=== PATIENT | male | born 1970 | race African-American/Black ===

== ENCOUNTER 2016-05-28 15:18 | Inpatient (IN) | payer OTHER ==
[2016-05-28 15:22] VITALS: BMI 26.6
--- NOTE | 2016-05-28 18:11 | HP ---
CIWA Score - CIWA Score Nausea/Vomitin Muscle Tremors: 3 Anxiety: 3 Agitation: 3 Paroxysmal Sweats: 2 Orientation: 0-Oriented Tacttile Disturbances: 2-Mild Itch/Numbness/Burn Auditory Disturbances: 2-Mild Harshness/Frighten Visual Disturbances: 2-Mild Sensitivity Headache: 2-Mild CIWA-Ar Total Score: 22 Admission ROS S - HPI Chief Complaint: I NEED DETOX FROM ALCOHOL,COCAINE AND HEROIN Allergies/Adverse Reactions: Allergies Allergy/AdvReac Type Severity Reaction Status Date / Time Fish Containing Products Allergy Severe Swelling Verified 06/20/15 21:19 No Known Drug Allergies Allergy Verified 06/23/15 18:31 SEA FOOD Allergy Severe Swelling Uncoded 06/20/15 21:19 History of Present Illness: THIS 45 - Ebola screening Have you traveled outside of the country in the last 21 days: No Have you had contact with anyone from an Ebola affected area: No Have you been sick,other than usual withdrawal symptoms: No Do you have a fever: No Patient History - Patient Medical History Hx Anemia: No Hx Asthma: No Hx Chronic Obstructive Pulmonary Disease (COPD): No Hx Cancer: No Hx Cardiac Disorders: No Hx Congestive Heart Failure: No Hx Hypertension: No Hx Hypercholesterolemia: No Hx Pacemaker: No HX Cerebrovascular Accident: No Hx Seizures: No Hx Dementia: No Hx Diabetes: No Hx Gastrointestinal Disorders: No Hx Liver Disease: No Hx Genitourinary Disorders: No Hx Sexually Transmitted Disorders: No Hx Renal Disease (ESRD): No Hx Thyroid Disease: No Hx Human Immunodeficiency Virus (HIV): No Hx Hepatitis C: No Hx Depression: Yes Hx Suicide Attempt: No Hx Bipolar Disorder: No Hx Schizophrenia: Yes - Patient Surgical History Past Surgical History: Yes Hx Neurologic Surgery: No Hx Cataract Extraction: No Hx Cardiac Surgery: No Hx Lung Surgery: No Hx Breast Surgery: No Hx Breast Biopsy: No Hx Abdominal Surgery: No Hx Appendectomy: No Hx Cholecystectomy: No Hx Genitourinary Surgery: No Hx Orthopedic Surgery: No Other Surgical History: hammar great toes 2012, both hands 6th digit removed as "baby" Anesthesia Reaction: No - PPD History Date: 06/22/15 - Smoking Cessation Smoking history: Current every day smoker Have you smoked in the past 12 months: Yes Aproximately how many cigarettes per day: 20 Hx Chewing Tobacco Use: No Family Disease History - Family Disease History Family Disease History: Heart Disease: Father, Mother Admission Physical Exam S - Vital Signs Vital Signs: Vital Signs - 24 hr 05/28/16 15:20 Temperature 97.6 F Pulse Rate 81 Respiratory 18 Rate Blood Pressure 122/98 BHS Breath Alcohol Content Breath Alcohol Content: 0 Urine Drug Screen - Results Drug Screen Negative: Yes
--- NOTE | 2016-05-28 18:16 | HP ---
CIWA Score - CIWA Score Nausea/Vomitin Muscle Tremors: 3 Anxiety: 3 Agitation: 3 Paroxysmal Sweats: 2 Orientation: 0-Oriented Tacttile Disturbances: 2-Mild Itch/Numbness/Burn Auditory Disturbances: 2-Mild Harshness/Frighten Visual Disturbances: 2-Mild Sensitivity Headache: 2-Mild CIWA-Ar Total Score: 22 Admission ROS BHS - HPI Chief Complaint: I NEED HELP TO STOP DRINKING ALCOHOL,COCAINE AND HEROIN Allergies/Adverse Reactions: Allergies Allergy/AdvReac Type Severity Reaction Status Date / Time Fish Containing Products Allergy Severe Swelling Verified 05/28/16 19:33 No Known Drug Allergies Allergy Verified 05/28/16 19:33 SEA FOOD Allergy Severe Swelling Uncoded 05/28/16 19:33 HAM Allergy Uncoded 05/28/16 19:33 History of Present Illness: THIS 45 YEARS OLD MALE WITH ALCOHOL,COCAINE,HEROIN DEPENDENCE,WITHDRAWAL SYMPTOM ,LAST DETOX [facility] 07/21/15 TO 06/25/15 SYNCOPE NICOTINE DEPENDENCE INSOMNIA LONGEST SOBRIETY 6 MONTHS Exam Limitations: No Limitations - Ebola screening Have you traveled outside of the country in the last 21 days: No Have you had contact with anyone from an Ebola affected area: No Have you been sick,other than usual withdrawal symptoms: No Do you have a fever: No - Review of Systems Constitutional: Loss of Appetite, Malaise, Night Sweats, Changes in sleep, Weakness, Unintentional Wgt. Loss EENT: reports: Tearing, Nose Congestion Respiratory: reports: No Symptoms reported Cardiac: reports: No Symptoms Reported GI: reports: Diarrhea, Nausea, Vomiting, Abdominal cramping : reports: No Symptoms Reported Musculoskeletal: reports: Back Pain, Muscle Pain Integumentary: reports: Dryness Neuro: reports: Headache, Tremors Endocrine: reports: No Symptoms Reported Hematology: reports: No Symptoms Reported Psychiatric: reports: Judgement Intact, Mood/Affect Appropiate, Orientated x3, other (BIPOLAR DISORDER) Patient History - Patient Medical History Hx Anemia: No Hx Asthma: No Hx Chronic Obstructive Pulmonary Disease (COPD): No Hx Cancer: No Hx Cardiac Disorders: No Hx Congestive Heart Failure: No Hx Hypertension: No Hx Hypercholesterolemia: No Hx Pacemaker: No HX Cerebrovascular Accident: No Hx Seizures: No Hx Dementia: No Hx Diabetes: No Hx Gastrointestinal Disorders: No Hx Liver Disease: No Hx Genitourinary Disorders: No Hx Sexually Transmitted Disorders: No Hx Renal Disease (ESRD): No Hx Thyroid Disease: No Hx Human Immunodeficiency Virus (HIV): No (LAST 2016 NEGATIVE) Hx Hepatitis C: No Hx Depression: Yes Hx Suicide Attempt: No Hx Bipolar Disorder: Yes Hx Schizophrenia: No Other Medical History: NO SUICIDAL,NO HOMICIDAL - Patient Surgical History Past Surgical History: Yes Hx Neurologic Surgery: No Hx Cataract Extraction: No Hx Cardiac Surgery: No Hx Lung Surgery: No Hx Breast Surgery: No Hx Breast Biopsy: No Hx Abdominal Surgery: No Hx Appendectomy: No Hx Cholecystectomy: No Hx Genitourinary Surgery: No Hx Orthopedic Surgery: No Other Surgical History: hammar great toes 2011, both hands 6th digit removed as "baby" Anesthesia Reaction: No - PPD History Previous Implant?: Yes Implanted On Prior [facility] Admission?: Yes Date: 06/22/15 Results: 0 MM PPD to be Administered?: No - Smoking Cessation Smoking history: Current every day smoker Have you smoked in the past 12 months: Yes Aproximately how many cigarettes per day: 20 Hx Chewing Tobacco Use: No Initiated information on smoking cessation: Yes 'Breaking Loose' booklet given: 05/28/16 - Substance & Tx. History Hx Alcohol Use: Yes Hx Substance Use: Yes Substance Use Type: Alcohol, Cocaine, Heroin Hx Substance Use Treatment: Yes ([facility] 06/20/15 TO 06/25/15) - Substances Abused Alcohol Route: Oral Frequency: Daily Amount used: 2PINTS OF MARQUEZ/5 OF 24 OZS Age of first use: 20 Date of Last Use: 05/27/16 Cocaine Route: Inhalation Frequency: Daily Amount used: 50$ Age of first use: 31 Date of Last Use: 05/27/16 Heroin Route: Inhalation Frequency: Daily Amount used: 5 BAGS Age of first use: 43 Date of Last Use: 05/23/16 Family Disease History - Family Disease History Family Disease History: Heart Disease: Father, Mother Admission Physical Exam S - Vital Signs Vital Signs: Vital Signs - 24 hr 05/28/16 15:20 Temperature 97.6 F Pulse Rate 81 Respiratory 18 Rate Blood Pressure 122/98 - Physical General Appearance: Yes: Moderate Distress, Tremorous, Irritable, Sweating, Anxious HEENTM: Yes: Hearing grossly Normal, Normal ENT Inspection, JENISE, Pharynx Normal Respiratory: Yes: Lungs Clear, Normal Breath Sounds, No Respiratory Distress Neck: Yes: Supple, Trachea in good position Breast: Yes: Within Normal Limits Cardiology: Yes: Within Normal Limits, Regular Rhythm, Regular Rate, S1, S2 Abdominal: Yes: Within Normal Limits, Normal Bowel Sounds, Non Tender, Flat, Soft Genitourinary: Yes: Within Normal Limits Back: Yes: Muscle Spasm Extremities: Yes: Within Normal Limits, Normal Range of Motion, Tremors Neurological: Yes: program advocate II-XII NML intact, Fully Oriented, Alert, Motor Strength 5/5 Integumentary: Yes: Dry Lymphatic: Yes: Within Normal Limits - Diagnostic (1) Alcohol dependence with uncomplicated withdrawal Current Visit: No Status: Acute (2) Bipolar disorder Current Visit: No Status: Acute (3) Cocaine dependence Current Visit: No Status: Acute Qualifiers: Substance use status: uncomplicated Qualified Code(s): F14.20 - Cocaine dependence, uncomplicated (4) Heroin dependence Current Visit: No Status: Acute (5) Nicotine dependence Current Visit: No Status: Acute Qualifiers: Nicotine product type: cigarettes Substance use status: uncomplicated Qualified Code(s): F17.210 - Nicotine dependence, cigarettes, uncomplicated (6) Opioid dependence with withdrawal Current Visit: No Status: Acute (7) Weight loss Current Visit: Yes Status: Acute (8) Syncope Current Visit: Yes Status: Acute Cleared for Admission [facility] - Detox or Rehab [facility] Level of Care: Medically Managed Detox Regimen/Protocol: Librium (PATIIENT URINE FOR DRUG SCREEN IS NEGATIVE,HE IS AWARED THAT HE WILL NOT GET METHADONE,WILL RECEIVE LIBRIUM REGIMEN) [facility] Breath Alcohol Content Breath Alcohol Content: 0 Urine Drug Screen - Results Drug Screen Negative: Yes
[2016-05-28] MEDS ORDERED: diphenhydrAMINE HCL 50 MG CAPSULE PO PRN (18:30)
[2016-05-28] MEDS ORDERED: ACETAMINOPHEN 325 MG TABLET (FP) PO PRN (18:30)
[2016-05-28] MEDS ORDERED: P-EPHED 60MG/TRIPROLIDI 2.5MG TABLET PO PRN (18:30)
[2016-05-28] MEDS ORDERED: NICOTINE POLACRILEX 2 MG GUM BC PRN (18:30)
[2016-05-28] MEDS ORDERED: MENTHOL/PHENOL 1 EACH UD MM PRN (18:30)
[2016-05-28] MEDS ORDERED: MAGNESIUM CITRATE 300 ML BOTTLE PO PRN (18:30)
[2016-05-28] MEDS ORDERED: MAGNESIUM HYDROX 2400MG/30ML ORAL SUSPENSION 30 ML CUP PO PRN (18:30)
[2016-05-28] MEDS ORDERED: LOPERAMIDE HCL 2 MG CAPSULE PO PRN (18:30)
[2016-05-28] MEDS ORDERED: IBUPROFEN 400 MG TABLET (FP) PO PRN (18:30)
[2016-05-28] MEDS ORDERED: hydrOXYzine PAMOATE 50 MG CAPSULE (FP) PO PRN (18:30)
[2016-05-28] MEDS ORDERED: MAG HYDROX/AL HYDROX/SIMETH 30 ML UNIT-DOSE CUP PO PRN (18:30)
[2016-05-28] MEDS ORDERED: guaiFENesin/D-METHORPHAN HB 10 ML UNIT-DOSE CUPS PO PRN (18:30)
[2016-05-28] MEDS ORDERED: CYCLOBENZAPRINE HCL 10 MG TABLET (FP) PO PRN (18:33)
[2016-05-28] MEDS ORDERED: chlordiazePOXIDE HCL 25 MG CAPSULE PO PRN (19:45)
[2016-05-28] MEDS ORDERED: chlordiazePOXIDE HCL 25 MG CAPSULE PO ONE (19:45)
[2016-05-28] MEDS: chlordiazePOXIDE HCL 25 MG CAPSULE PO SCH (22:48)
[2016-05-28] MEDS: THIAMINE HCL 100 MG TABLET (FP) PO SCH (22:48)
[2016-05-28] MEDS: cloNIDine HCL 0.1 MG TABLET PO SCH (22:48)
[2016-05-28 23:08] LABS: URINE APPEARANCE CLEAR; URINE BILIRUBIN NEGATIVE (NEGATIVE); URINE BLOOD NEGATIVE (NEGATIVE); URINE COLOR LTYELLOW; URINE GLUCOSE (UA) NEGATIVE (NEGATIVE); URINE KETONE TRACE (NEGATIVE); URINE LEUK ESTERASE NEGATIVE (NEGATIVE); URINE NITRITE NEGATIVE (NEGATIVE); URINE PROTEIN NEGATIVE (NEGATIVE); URINE UROBILINOGEN NEGATIVE E.U./dl (0.2-1.0)
[2016-05-29] MEDS: chlordiazePOXIDE HCL 25 MG CAPSULE PO SCH ×4 (05:37→22:41)
--- NOTE | 2016-05-29 10:08 | EKG ---
Test Reason : Blood Pressure : / mmHG Vent. Rate : 064 BPM Atrial Rate : 064 BPM P-R Int : 114 ms QRS Dur : 088 ms QT Int : 398 ms P-R-T Axes : 039 045 021 degrees QTc Int : 410 ms NORMAL SINUS RHYTHM NORMAL ECG NO PREVIOUS ECGS AVAILABLE Confirmed by TIFFANIE CLARK MD ([id number]) on 05/29/2016 10:08:13 AM Referred By: Timoteo Turner Confirmed By:TIFFANIE CLARK MD
[2016-05-29 10:25] LABS: MCH 31.1 pg (25.7-33.7); MCHC 33.4 g/dl (32.0-35.9); MEAN CELL VOLUME 93.1 fl (80-96); MEAN PLT VOLUME 7.9 fl (7.5-11.1); PLATELET COUNT 143 K/MM3 (134-434); RDW 13.7 % (11.9-15.9); WHITE BLOOD COUNT 2.8 K/mm3 (4.0-10.0)
[2016-05-29] MEDS: PRENATAL VITAMINS W/ FOLIC ACID TABLET (FP) PO SCH (10:43)
[2016-05-29] MEDS: cloNIDine HCL 0.1 MG TABLET PO SCH ×2 (10:43→22:43)
[2016-05-29 11:07] LABS: ALBUMIN 3.3 g/dl (3.4-5.0)
[2016-05-29 11:10] LABS: ALK PHOS 63 U/L (45-117); ANION GAP 9 (8-16); BILIRUBIN,TOTAL 0.6 mg/dL (0.2-1.0); CALCIUM 8.5 mg/dL (8.5-10.1); CO2 28 mmol/L (21-32); COCKROFT - GAULT 93.46; CREATININE 1.1 mg/dL (0.7-1.3); GLUCOSE,RANDOM 106 mg/dL (74-106); SGOT/AST 25 U/L (15-37); SGPT/ALT 23 U/L (12-78); TOT PROT 6.7 g/dl (6.4-8.2)
--- NOTE | 2016-05-29 12:05 | CONSULT ---
[facility] Psychiatric Consult - Data Date of interview: 05/29/16 Admission source: [facility] Identifying data: This is 45 years old AA single male residing with his mother supported by [facility] admitted for opioid,Cocaine and alcohol dependence. Substance Abuse History: Patient reports drinking since school age,beer 6 packs daily,Cocaine since 31 yo,heroin since 44 (sniffing about 5 bags daily). Medical History: unremarkable Psychiatric History: patient is poor historian due to his learning disability along with mental illness.He was dx with Bipolar disorder,reports no psychiatric hospitalizations(?).He is under psychiatric care at [facility] in [facility].Current medications:Depakote 500 mg po bid,Risperidone 2 mg po bid and trazodone 50 mg po hs. Physical/Sexual Abuse/Trauma History: denies Mental Status Exam - Mental Status Exam Alert and Oriented to: Time, Place, Person Cognitive Function: Grossly Intact Patient Appearance: Well Groomed Mood: Withdrawn Affect: Mood Congruent, Constricted Patient Behavior: Cooperative Speech Pattern: Clear Voice Loudness: Normal Thought Process: Goal Oriented Thought Disorder: Present Hallucinations: Denies Suicidal Ideation: Denies Homicidal Ideation: Denies Insight/Judgement: Fair Sleep: Well Appetite: Good Muscle strength/Tone: Normal Psychiatric Findings - Problem List ([place] 1, 2,3) (1) Alcohol dependence with uncomplicated withdrawal Current Visit: Yes Status: Chronic (2) Bipolar disorder Current Visit: Yes Status: Acute (3) Cocaine dependence Current Visit: Yes Status: Chronic Qualifiers: Substance use status: uncomplicated Qualified Code(s): F14.20 - Cocaine dependence, uncomplicated (4) Heroin dependence Current Visit: Yes Status: Chronic (5) Nicotine dependence Current Visit: Yes Status: Acute Qualifiers: Nicotine product type: cigarettes Substance use status: uncomplicated Qualified Code(s): F17.210 - Nicotine dependence, cigarettes, uncomplicated - Initial Treatment Plan Initial Treatment Plan: Continue current medications as per plan.Will monitor progress.
[2016-05-29] MEDS: risperiDONE 2 MG TABLET PO SCH ×2 (12:40→22:41)
[2016-05-29] MEDS: DIVALPROEX SODIUM 500 MG TABLET E.C. PO SCH ×2 (12:40→22:41)
--- NOTE | 2016-05-29 12:57 | PN ---
S CIWA - CIWA Score Nausea/Vomitin Muscle Tremors: 3 Anxiety: 3 Agitation: 3 Paroxysmal Sweats: 3 Orientation: 0-Oriented Tacttile Disturbances: 1-Very Mild Itch/Numbness Auditory Disturbances: 0-None Visual Disturbances: 0-None Headache: 2-Mild CIWA-Ar Total Score: 17 BHS Progress Note (SOAP) Subjective: shakes, sweats, irritability and muscle aches Objective: 05/29/16 12:56 Vital Signs - 8 hr 05/29/16 05/29/16 06:43 09:42 Temperature 95.9 F L 96.4 F L Pulse Rate 76 73 Respiratory 18 18 Rate Blood Pressure 112/75 113/77 Laboratory Last Values WBC 2.8 K/mm3 (4.0-10.0) L D 05/29/16 07:50 RBC 4.54 M/mm3 (4.00-5.60) 05/29/16 07:50 Hgb 14.1 GM/dL (11.7-16.9) 05/29/16 07:50 Hct 42.2 % (35.4-49) 05/29/16 07:50 MCV 93.1 fl (80-96) 05/29/16 07:50 MCHC 33.4 g/dl (32.0-35.9) 05/29/16 07:50 RDW 13.7 % (11.9-15.9) 05/29/16 07:50 Plt Count 143 K/MM3 (134-434) D 05/29/16 07:50 MPV 7.9 fl (7.5-11.1) 05/29/16 07:50 Sodium 142 mmol/L (136-145) 05/29/16 07:50 Potassium 3.5 mmol/L (3.5-5.1) 05/29/16 07:50 Chloride 105 mmol/L (98-107) 05/29/16 07:50 Carbon Dioxide 28 mmol/L (21-32) 05/29/16 07:50 Anion Gap 9 (8-16) 05/29/16 07:50 BUN 14 mg/dL (7-18) D 05/29/16 07:50 Creatinine 1.1 mg/dL (0.7-1.3) D 05/29/16 07:50 Creat Clearance w eGFR > 60 (>60) 05/29/16 07:50 Random Glucose 106 mg/dL (74-106) D 05/29/16 07:50 Calcium 8.5 mg/dL (8.5-10.1) 05/29/16 07:50 Total Bilirubin 0.6 mg/dL (0.2-1.0) 05/29/16 07:50 AST 25 U/L (15-37) D 05/29/16 07:50 ALT 23 U/L (12-78) 05/29/16 07:50 Alkaline Phosphatase 63 U/L (45-117) 05/29/16 07:50 Total Protein 6.7 g/dl (6.4-8.2) 05/29/16 07:50 Albumin 3.3 g/dl (3.4-5.0) L 05/29/16 07:50 Urine Color Ltyellow 05/28/16 21:30 Urine Appearance Clear 05/28/16 21:30 Urine pH 6.0 (5.0-8.0) 05/28/16 21:30 Ur Specific [place] 1.020 (1.001-1.035) 05/28/16 21:30 Urine Protein Negative (NEGATIVE) 05/28/16 21:30 Urine Glucose (UA) Negative (NEGATIVE) 05/28/16 21:30 Urine Ketones Trace (NEGATIVE) H 05/28/16 21:30 Urine Blood Negative (NEGATIVE) 05/28/16 21:30 Urine Nitrite Negative (NEGATIVE) 05/28/16 21:30 Urine Bilirubin Negative (NEGATIVE) 05/28/16 21:30 Urine Urobilinogen Negative E.U./dl (0.2-1.0) 05/28/16 21:30 Ur Leukocyte Esterase Negative (NEGATIVE) 05/28/16 21:30 labs noted Assessment: 05/29/16 12:57 withdrawal sx Plan: continue detox
[2016-05-29] MEDS: THIAMINE HCL 100 MG TABLET (FP) PO SCH (22:41)
[2016-05-29] MEDS: traZODone HCL 50 MG TABLET (FP) PO SCH (22:41)
[2016-05-30] MEDS: chlordiazePOXIDE HCL 25 MG CAPSULE PO SCH ×3 (06:05→17:42)
[2016-05-30] MEDS: DIVALPROEX SODIUM 500 MG TABLET E.C. PO SCH ×2 (10:45→22:44)
[2016-05-30] MEDS: PRENATAL VITAMINS W/ FOLIC ACID TABLET (FP) PO SCH (10:45)
[2016-05-30] MEDS: risperiDONE 2 MG TABLET PO SCH ×2 (10:45→22:44)
[2016-05-30] MEDS: cloNIDine HCL 0.1 MG TABLET PO SCH ×2 (10:46→22:44)
--- NOTE | 2016-05-30 15:19 | PN ---
S CIWA - CIWA Score Nausea/Vomitin Muscle Tremors: 4-Moderate,w/Arms Extend Anxiety: 4-Mod. Anxious/Guarded Agitation: 3 Paroxysmal Sweats: No Perspiration Orientation: 0-Oriented Tacttile Disturbances: 0-None Auditory Disturbances: 0-None Visual Disturbances: 0-None Headache: 1-Very Mild CIWA-Ar Total Score: 15 BHS Progress Note (SOAP) Subjective: Anxious, sweating, stomach ache, tremor Objective: 05/30/16 15:18 Last Vital Signs Temp Pulse Resp BP Pulse Ox 96.7 F L 100 H 18 103/69 05/30/16 13:18 05/30/16 13:18 05/30/16 13:18 05/30/16 13:18 Laboratory Tests 05/28/16 05/29/16 05/29/16 21:30 07:50 07:50 WBC 2.8 L D RBC 4.54 Hgb 14.1 Hct 42.2 MCV 93.1 MCHC 33.4 RDW 13.7 Plt Count 143 D MPV 7.9 Sodium 142 Potassium 3.5 Chloride 105 Carbon Dioxide 28 Anion Gap 9 BUN 14 D Creatinine 1.1 D Creat Clearance w eGFR > 60 Random Glucose 106 D Calcium 8.5 Total Bilirubin 0.6 AST 25 D ALT 23 Alkaline Phosphatase 63 Total Protein 6.7 Albumin 3.3 L Urine Color Ltyellow Urine Appearance Clear Urine pH 6.0 Ur Specific [place] 1.020 Urine Protein Negative Urine Glucose (UA) Negative Urine Ketones Trace H Urine Blood Negative Urine Nitrite Negative Urine Bilirubin Negative Urine Urobilinogen Negative Ur Leukocyte Esterase Negative RPR Titer 05/29/16 07:50 WBC RBC Hgb Hct MCV MCHC RDW Plt Count MPV Sodium Potassium Chloride Carbon Dioxide Anion Gap BUN Creatinine Creat Clearance w eGFR Random Glucose Calcium Total Bilirubin AST ALT Alkaline Phosphatase Total Protein Albumin Urine Color Urine Appearance Urine pH Ur Specific [place] Urine Protein Urine Glucose (UA) Urine Ketones Urine Blood Urine Nitrite Urine Bilirubin Urine Urobilinogen Ur Leukocyte Esterase RPR Titer Nonreactive Labs noted Assessment: 05/30/16 15:18 Withdrawal symptoms Plan: Continue detox
[2016-05-30] MEDS: traZODone HCL 50 MG TABLET (FP) PO SCH (22:43)
[2016-05-30] MEDS: THIAMINE HCL 100 MG TABLET (FP) PO SCH (22:43)
[2016-05-30] MEDS: chlordiazePOXIDE 5 MG CAPSULE PO SCH (22:43)
[2016-05-31] MEDS: chlordiazePOXIDE 5 MG CAPSULE PO SCH ×3 (05:24→17:05)
[2016-05-31] MEDS: cloNIDine HCL 0.1 MG TABLET PO SCH ×2 (10:41→22:16)
[2016-05-31] MEDS: DIVALPROEX SODIUM 500 MG TABLET E.C. PO SCH ×2 (10:41→22:16)
[2016-05-31] MEDS: PRENATAL VITAMINS W/ FOLIC ACID TABLET (FP) PO SCH (10:41)
[2016-05-31] MEDS: risperiDONE 2 MG TABLET PO SCH ×2 (10:42→22:17)
--- NOTE | 2016-05-31 16:15 | PN ---
BHS Progress Note (SOAP) Subjective: Sweating,interrupted sleep,restless Objective: 05/31/16 16:13 Vital Signs - 8 hr 05/31/16 05/31/16 09:37 13:59 Temperature 95.5 F L 98.1 F Pulse Rate 99 H 86 Respiratory 20 18 Rate Blood Pressure 101/82 98/67 Laboratory Last Values WBC 2.8 K/mm3 (4.0-10.0) L D 05/29/16 07:50 RBC 4.54 M/mm3 (4.00-5.60) 05/29/16 07:50 Hgb 14.1 GM/dL (11.7-16.9) 05/29/16 07:50 Hct 42.2 % (35.4-49) 05/29/16 07:50 MCV 93.1 fl (80-96) 05/29/16 07:50 MCHC 33.4 g/dl (32.0-35.9) 05/29/16 07:50 RDW 13.7 % (11.9-15.9) 05/29/16 07:50 Plt Count 143 K/MM3 (134-434) D 05/29/16 07:50 MPV 7.9 fl (7.5-11.1) 05/29/16 07:50 Sodium 142 mmol/L (136-145) 05/29/16 07:50 Potassium 3.5 mmol/L (3.5-5.1) 05/29/16 07:50 Chloride 105 mmol/L (98-107) 05/29/16 07:50 Carbon Dioxide 28 mmol/L (21-32) 05/29/16 07:50 Anion Gap 9 (8-16) 05/29/16 07:50 BUN 14 mg/dL (7-18) D 05/29/16 07:50 Creatinine 1.1 mg/dL (0.7-1.3) D 05/29/16 07:50 Creat Clearance w eGFR > 60 (>60) 05/29/16 07:50 Random Glucose 106 mg/dL (74-106) D 05/29/16 07:50 Calcium 8.5 mg/dL (8.5-10.1) 05/29/16 07:50 Total Bilirubin 0.6 mg/dL (0.2-1.0) 05/29/16 07:50 AST 25 U/L (15-37) D 05/29/16 07:50 ALT 23 U/L (12-78) 05/29/16 07:50 Alkaline Phosphatase 63 U/L (45-117) 05/29/16 07:50 Total Protein 6.7 g/dl (6.4-8.2) 05/29/16 07:50 Albumin 3.3 g/dl (3.4-5.0) L 05/29/16 07:50 Urine Color Ltyellow 05/28/16 21:30 Urine Appearance Clear 05/28/16 21:30 Urine pH 6.0 (5.0-8.0) 05/28/16 21:30 Ur Specific [place] 1.020 (1.001-1.035) 05/28/16 21:30 Urine Protein Negative (NEGATIVE) 05/28/16 21:30 Urine Glucose (UA) Negative (NEGATIVE) 05/28/16 21:30 Urine Ketones Trace (NEGATIVE) H 05/28/16 21:30 Urine Blood Negative (NEGATIVE) 05/28/16 21:30 Urine Nitrite Negative (NEGATIVE) 05/28/16 21:30 Urine Bilirubin Negative (NEGATIVE) 05/28/16 21:30 Urine Urobilinogen Negative E.U./dl (0.2-1.0) 05/28/16 21:30 Ur Leukocyte Esterase Negative (NEGATIVE) 05/28/16 21:30 RPR Titer Nonreactive (NONREACTIVE) 05/29/16 07:50 labs noted Assessment: 05/31/16 16:13 Withdrawal sx. Plan: Continue detox
[2016-05-31] MEDS: chlordiazePOXIDE HCL 10 MG CAPSULE PO SCH (22:16)
[2016-05-31] MEDS: traZODone HCL 50 MG TABLET (FP) PO SCH (22:16)
[2016-05-31] MEDS: THIAMINE HCL 100 MG TABLET (FP) PO SCH (22:17)
[2016-06-01] MEDS: chlordiazePOXIDE HCL 10 MG CAPSULE PO SCH (05:34)
[2016-06-01 06:28] VITALS: BP 103/70; PULSE 107; TEMP 95.7
--- NOTE | 2016-06-01 10:37 | DS ---
[facility] Detox Discharge Summary Admission Date: 05/28/16 Discharge Date: 06/01/16 - History Present History: Alcohol Dependence, Cocaine Dependence, Opioid Dependence Pertinent Past History: mood disorder - Physical Exam Results Vital Signs: Vital Signs Temperature 95.7 F L 06/01/16 06:27 Pulse Rate 107 H 06/01/16 06:27 Respiratory Rate 16 06/01/16 06:27 Blood Pressure 103/70 06/01/16 06:27 O2 Sat by Pulse Oximetry (%) Pertinent Admission Physical Exam Findings: Withdrawal sx. Laboratory Tests 05/28/16 05/29/16 05/29/16 21:30 07:50 07:50 WBC 2.8 L D RBC 4.54 Hgb 14.1 Hct 42.2 MCV 93.1 MCHC 33.4 RDW 13.7 Plt Count 143 D MPV 7.9 Sodium 142 Potassium 3.5 Chloride 105 Carbon Dioxide 28 Anion Gap 9 BUN 14 D Creatinine 1.1 D Creat Clearance w eGFR > 60 Random Glucose 106 D Calcium 8.5 Total Bilirubin 0.6 AST 25 D ALT 23 Alkaline Phosphatase 63 Total Protein 6.7 Albumin 3.3 L Urine Color Ltyellow Urine Appearance Clear Urine pH 6.0 Ur Specific [place] 1.020 Urine Protein Negative Urine Glucose (UA) Negative Urine Ketones Trace H Urine Blood Negative Urine Nitrite Negative Urine Bilirubin Negative Urine Urobilinogen Negative Ur Leukocyte Esterase Negative RPR Titer 05/29/16 07:50 WBC RBC Hgb Hct MCV MCHC RDW Plt Count MPV Sodium Potassium Chloride Carbon Dioxide Anion Gap BUN Creatinine Creat Clearance w eGFR Random Glucose Calcium Total Bilirubin AST ALT Alkaline Phosphatase Total Protein Albumin Urine Color Urine Appearance Urine pH Ur Specific [place] Urine Protein Urine Glucose (UA) Urine Ketones Urine Blood Urine Nitrite Urine Bilirubin Urine Urobilinogen Ur Leukocyte Esterase RPR Titer Nonreactive labs noted - Treatment Hospital Course: Detox Protocol Followed, Detoxed Safely, Responded well, Discharged Condition Good, Rehab Referral Accepted Patient has Accepted a Rehab Referral [facility]: [facility] - Medication Discharge Medications: Ambulatory Orders Divalproex [Depakote -] 500 mg PO BID 06/20/15 Risperidone [Risperdal M-Tab] 2 mg PO BID 06/20/15 Trazodone HCl [Desyrel -] 50 mg PO HS 06/20/15 Divalproex [Depakote -] 500 mg PO BID #60 tablet. 05/29/16 Risperidone [Risperdal -] 2 mg PO BID #60 tablet 05/29/16 Trazodone HCl [Desyrel -] 50 mg PO HS #30 tablet 05/29/16 - Diagnosis (1) Alcohol dependence with uncomplicated withdrawal Current Visit: Yes Status: Chronic (2) Cocaine dependence Current Visit: Yes Status: Chronic Qualifiers: Substance use status: uncomplicated Qualified Code(s): F14.20 - Cocaine dependence, uncomplicated (3) Nicotine dependence Current Visit: Yes Status: Acute Qualifiers: Nicotine product type: cigarettes Substance use status: uncomplicated Qualified Code(s): F17.210 - Nicotine dependence, cigarettes, uncomplicated (4) Opioid dependence with withdrawal Current Visit: Yes Status: Acute - AMA Did Patient Leave Against Medical Advice: No
[2016-06-01] MEDS: risperiDONE 2 MG TABLET PO SCH (10:45)
[2016-06-01] MEDS: cloNIDine HCL 0.1 MG TABLET PO SCH (10:45)
[2016-06-01] MEDS: DIVALPROEX SODIUM 500 MG TABLET E.C. PO SCH (10:45)
[2016-06-01] MEDS: PRENATAL VITAMINS W/ FOLIC ACID TABLET (FP) PO SCH (10:45)
== END 2016-06-01 10:47 | disposition home or self-care (01) | DRG 773 ==
LOC: YASAS 15:18 → Y3N 18:44
PROVIDERS: ADMIT Internal Medicine; ATTEND Internal Medicine
PROC: HZ2ZZZZ Detoxification Services for Substance Abuse Treatment (ICD-10-PCS; principal; 2016-06-01)
DX: F11.20 Opioid dependence, uncomplicated (principal); F10.230 Alcohol dependence with withdrawal, uncomplicated; F14.20 Cocaine dependence, uncomplicated; F17.210 Nicotine dependence, cigarettes, uncomplicated; F31.9 Bipolar disorder, unspecified
CPT/HCPCS: 36415; 80053; 81003; 85027; 86593; 93005; 93010